=== PATIENT | male | born 1965 | race Caucasian/White ===

== ENCOUNTER 2020-03-09 00:40 | Outpatient (CLI) | payer BC, SELFPAY ==
[2020-03-09 18:53] LABS: SARS-CoV-2 RNA PCR Negative
== END 2020-03-09 00:41 | disposition home or self-care (01) ==
LOC: ANHCOVIDDT 00:40
PROVIDERS: PCP Internal Medicine; Visit Provider Specialist
DX: Z01.812 Encounter for preprocedural laboratory examination (principal); Z11.59 Encounter for screening for other viral diseases
CPT/HCPCS: 87635; C9803; U0003

== ENCOUNTER 2020-03-11 05:21 | Day surgery (SDC) | payer BC, OTHER, SELFPAY ==
[2020-03-10 10:33] VITALS: BMI 33.5
[2020-03-11] VITALS (24 sets, daily range): BP systolic 85–121; BP diastolic 53–84; PULSE 56–70; RESP 10–18; TEMP 36.1–36.9; O2SAT 94–98
[2020-03-11 08:55] LABS: Basophils Percent Auto 0.7 % (0.2-1.2); Eosinophils Absolute Auto 0.3 K/mm3 (0-0.3); Eosinophils Percent Auto 5.1 % (0-4.4); Hematocrit 47.4 % (42.0-52.0); Immature Granulocyte Absolute 0.02 K/mm3 (0.00-0.031); Immature Granulocyte Percent A 0.4 % (0-0.5); Lymphocytes Absolute Auto 1.71 K/mm3 (0.9-3.2); Lymphocytes Percent Auto 31.4 % (18.3-44.2); Mean Corpuscular HGB Conc 33.8 g/dl (32-36); Mean Corpuscular Hemoglobin 30.8 pg (26-34); Mean Corpuscular Volume 91.3 fl (80-100); Mean Platelet Volume 9.8 fl (7.4-10.4); Monocytes Absolute Auto 0.4 K/mm3 (0.1-0.6); Monocytes Percent Auto 7.7 % (2.6-8.5); Neutrophils Percent Auto 54.7 % (45.5-73.1); Platelet Count Result 222 k/mm3 (150-375); Red Blood Count 5.19 M/mm3 (4.6-6.20); Red Cell Distribution Width 12.8 % (11.5-14.5); White Blood Count 5.5 K/mm3 (4.5-10.0)
[2020-03-11 09:04] LABS: Prothrombin Time 12.6 Seconds (11.1-14.7)
[2020-03-11 09:09] LABS: Anion Gap 12.6 mmol/L (7-16); Blood Urea Nitrogen 22 mg/dL (9-20); Calcium 8.8 mg/dL (8.4-10.2); Carbon Dioxide 24 mmol/L (22-30); Chloride 108 mmol/L (98-107); Estimated CRCL calculation 103 ml/min; Estimated Glomerular Filt Rate > 60; Glucose 103 mg/dL (75-110); Potassium 4.6 mmol/L (3.4-5.0); Sodium 140 mmol/L (137-145)
--- NOTE | 2020-03-11 10:12 | WPDMODSED ---
Moderate Sedation Note-Pt Data Patient Data Diagnosis: Coronary artery disease, small-vessel disease identified in 2018 being treated medically. Patient has increase in symptoms with exertion and mildly abnormal nuclear stress test Present Complaint: exertional chest pain Procedure to be performed/Plan: left heart catheterization Allergies Allergy/AdvReac Type Severity Reaction Status Date / Time No Known Allergies Allergy Unverified 10/03/18 03:46 Home Medications Medication Instructions Recorded Confirmed Type alirocumab 75 mg/mL subcutaneous 75 mg SUB-Q DAILY 07/07/19 03/10/20 History pen injector atorvastatin 40 mg tablet 40 mg PO DAILY 07/07/19 03/10/20 History nitroglycerin 0.4 mg sublingual 0.4 mg SUBLINGUAL Q5M PRN 07/07/19 03/10/20 History tablet ranolazine 500 mg tablet,extended 1,000 mg PO Q12H 07/07/19 03/10/20 History release,12 hr losartan 25 mg tablet 25 mg PO DAILY 07/08/19 03/10/20 History omeprazole 40 mg capsule,delayed 40 mg PO DAILY #90 cap 07/08/19 03/10/20 Rx release valacyclovir 500 mg tablet 500 mg PO DAILY #90 tablet 07/08/19 03/10/20 Rx zolpidem 10 mg tablet 10 mg PO ONCE #90 tablet 01/06/20 03/11/20 Rx metoprolol succinate 50 mg PO DAILY 03/10/20 03/10/20 History Current Medications: Active Medications Sodium Chloride (Normal Saline Iv) 500 mls @ 100 mls/hr IV CONT .Q5H SARAH Sedation/Anesthesia: No previous sedation/anesthesia problems (including family history). [facility] Social History Social History Smoking status: Former smoker Tobacco type: cigarettes Second hand tobacco smoke exposure: Yes Smoking end date: 08/05/13 Alcohol intake: current Substance use: never Substance use type: does not use Living arrangements: with family Gender identity (if verbalized by the patient): Male Mod Sed Physical Exam Physical Exam Pre Procedural Exam: Normal: Neck, Throat, Airway, Lungs, Heart Size, Heart Rate, Heart Rhythm, Neuro Exam and Extremities and Variation: Appearance ( overweight white male no apparent distress) Hours since solid foods: 12 Hours since liquid intake: 12 Internal Medicine - PN: Obj Da Vital Signs Vital Signs: Vital Signs - 24 hr 03/11/20 08:45 Temperature 36.9 C Pulse Rate 68 Respiratory Rate 18 Blood Pressure 121/77 Pulse Oximetry 96 Meds/Results Medications: Active Medications Generic Name Dose Route Start Last Admin Trade Name Barry PRN Reason Stop Dose Admin Sodium Chloride 500 mls @ 100 mls/hr 03/11/20 06:10 Normal Saline Iv IV CONT .Q5H SARAH Labs CBC & Chem 7: 03/11/20 08:48 03/11/20 08:48 Labs: Laboratory Results - last 24 hr 03/11/20 03/11/20 03/11/20 08:48 08:48 08:48 WBC 5.5 RBC 5.19 Hgb 16.0 Hct 47.4 MCV 91.3 MCH 30.8 MCHC 33.8 RDW 12.8 Plt Count 222 MPV 9.8 Immature Gran % (Auto) 0.4 Neut % (Auto) 54.7 Lymph % (Auto) 31.4 Will % (Auto) 7.7 Eos % (Auto) 5.1 H Baso % (Auto) 0.7 Lymph # (Auto) 1.71 Will # (Auto) 0.4 Eos # (Auto) 0.3 Baso # (Auto) 0.0 Abs Immat Gran (auto) 0.02 Absolute Neuts (auto) 3.0 Absolute Nucleated RBC 0.0 Nucleated RBC % 0.0 PT 12.6 INR 1.0 Sodium 140 Potassium 4.6 Chloride 108 H Carbon Dioxide 24 Anion Gap 12.6 BUN 22 H Creatinine 0.80 Estim Creat Clear Calc 103 Estimated GFR > 60 Glucose 103 Calcium 8.8 ASA Classification/Sedation ASA Classification/Sedation ASA Class: II Emergent: No Risks: Risks, benefits and alternatives explained and patient/family accepted plan for sedation. Patient re-evaluated immediately prior to sedation.
--- NOTE | 2020-03-11 11:08 | ECG_ITS ---
Measurements Intervals [place] Rate: 58 P: 0 VA: 147 QRS: -9 QRSD: 97 T: -5 QT: 445 QTc: 439 Interpretive Statements SINUS BRADYCARDIA INCOMPLETE RIGHT BUNDLE BRANCH BLOCK BORDERLINE ST-T WAVE ABNORMALITY- ANT/INF LEADS BORDERLINE ECG Electronically Signed On 03-11-2020 15:49:57 CDT by Umang Reno D.O.
--- NOTE | 2020-03-11 11:12 | WPDCARDPROC ---
Cardiac Cath Procedure Note Date of procedure:: 03/11/20 Performing physician:: Jayesh Heart MD Indication:: coronary artery disease with angina despite medical treatment Brief clinical history:: this is a 54-year-old man with coronary artery disease felt to have small vessel disease following angiography in 2018 for which medical treatment has been recommended. Despite medical treatment he is a experiencing worsening exertional angina and follow-up angiography has been recommended Procedure Procedure performed:: left heart catheterization with left ventriculography and coronary angiography percutaneous balloon angioplasty of left PDA Sedation/Medication given:: fentanyl 50 mg Versed 6 mg case start time 1022 a.m. case end time 11:06 a.m. sedation provided by Pricilla Garcia RN, trained observer Access site:: right femoral artery Estimated blood loss:: 15-20 cc Procedure note:: patient was brought to the cardiac catheterization lab in the postabsorptive state the rest where the right femoral triangle was prepared and draped in the usual sterile fashion. . Anesthesia was provided with 1% lidocaine infiltrated locally. Using the modified Seldinger technique the femoral artery was punctured and a 5 Gambian vascular sheath was placed. Following this left heart catheterization was carried out. I utilized a 5 Gambian angled pigtail catheter to perform a left ventriculogram and examined left-sided hemodynamics. Following this the right coronary was engaged and injected using a 5 Gambian JR4 catheter. After this the left coronary was not engaged and injected sing a Five Gambian FL4 catheter. The cine angiograms were then reviewed and PCI of the left PDA was recommended and carried out as detailed below. Prior to PCI the 5 Gambian sheath was changed over guidewire for a 6 Gambian sheath. He was then anticoagulated with bolus and infusion of Angiomax and received Brilinta 180 mg orally well as full-dose aspirin. Following this PCI of the left PDA was performed as detailed below. Following this the case was terminated. The sheath was sutured into position he was taken to the holding area in stable condition you tolerated procedure well and there were no apparent procedural complications. Patient had no sign of a groin hematoma upon leaving the cytology laboratory manager. Findings:: Hemodynamics: Central aorta 100/56 left ventricle 98 over 5 end-diastolic 8. No gradient was seen across the aortic valve upon pullback. Left ventricle: LV g in the RONQUILLO projection shows the LV to be normal in size all segments contract well global ejection fraction is visually estimated to be 60-65%. Left main coronary artery is widely patent has a somewhat superior takeoff. The LAD is a moderate caliber artery extending down to around the apex. The LAD has modest proximal atherosclerosis with some luminal plaquing no more than about 20% stenosis is identified angiographically the vessel is unchanged in comparison to the angiogram from 2018 the circumflex is dominant to the posterior circulation with a large caliber vessel. The proximal trunk of the circumflex in the proximal marginal branches are free of significant disease. The left PDA however is severely diseased with 95% stenosis in its 1st half. There is also a 80-90% ostial lesion of this vessel. this vessel angiographically has progressed from 80-90% stenosis in 2018. The distal posterolateral circumflex vessel prior to this is angiographically non disease. The right coronary artery is very small in caliber non dominant has a 99% ostial stenosis and a 99% stenosis just distal to this. There are 2 small RV branch is following this. Angiographically this is unchanged compared to 2018 It was determined angiographically that the severe disease in the left PDA was responsible for the patient's symptoms and PCI of this was recommended. This is a fairly small distal vessel and is a poor candidate vessel fo
[2020-03-11] MEDS: ISOSORBIDE MONONITRATE 30 MG TAB.ER.24H PO (11:55)
--- NOTE | 2020-03-11 17:59 | ADMGEN ---
This patient, Avel Christie, was admitted to IMU Room 200-01. Patient/family oriented to hospital policies and general routines including ID bracelet, bed and alarms, visiting hours, pain management, procedures, bathroom and other care routines, personal items, smoking policy, room service/diet, and visiting hours. Valuables list has been completed. Information on how to activate the Rapid Response Team has been discussed. Patient/Family are encouraged to report perceived risks to care and to ask questions if they do not understand what they are told or what they should do.
[2020-03-11] MEDS: SODIUM CHLORIDE 0.9% IV 1,000 ML 125 ML IV CONT (18:26)
[2020-03-11] MEDS: ACETAMINOPHEN 325 MG TABLET 650 MG PO (20:14)
[2020-03-11] MEDS: RANOLAZINE 500 MG TAB.ER.12H 1000 MG PO (20:15)
[2020-03-11] MEDS: ZOLPIDEM TARTRATE 5 MG TABLET 10 MG PO (22:23)
[2020-03-12] VITALS (8 sets, daily range): BP systolic 114–137; BP diastolic 73–88; PULSE 54–71; RESP 12–18; TEMP 36.4–36.8; O2SAT 95–97
[2020-03-12] MEDS: ACETAMINOPHEN 325 MG TABLET 650 MG PO ×2 (00:02→09:01)
--- NOTE | 2020-03-12 05:11 | ECG_ITS ---
Measurements Intervals [place] Rate: 71 P: 16 NM: 152 QRS: -18 QRSD: 106 T: -19 QT: 396 QTc: 431 Interpretive Statements SINUS RHYTHM ST-T WAVE ABNORMALITY IN ANTERIOR LEADS- CONSIDER ISCHEMIA ABNORMAL ECG Electronically Signed On 03-12-2020 8:11:25 CDT by Umang Reno D.O.
[2020-03-12] MEDS: ATORVASTATIN 40 MG TABLET PO (09:01)
[2020-03-12] MEDS: ASPIRIN 81 MG CHEWABLE TABLET PO (09:01)
[2020-03-12] MEDS: RANOLAZINE 500 MG TAB.ER.12H 1000 MG PO (09:02)
[2020-03-12] MEDS: LOSARTAN POTASSIUM 25 MG TABLET PO (09:02)
[2020-03-12] MEDS: valACYclovir HCL 500 MG TABLET PO (09:02)
[2020-03-12] MEDS: CLOPIDOGREL BISULFATE 75 MG TABLET PO (09:02)
[2020-03-12] MEDS: METOPROLOL SUCCINATE EXT REL 50 MG TABCR PO (09:02)
[2020-03-12] MEDS: PANTOPRAZOLE 40 MG TABLET PO (09:02)
--- NOTE | 2020-03-12 09:39 | PM.DS ---
DS: Admitting Diagnosis Admitting Diagnosis Admitting Diagnosis: Progressive angina CAD DS: Discharge Diagnosis Discharge Diagnosis (1) CAD (coronary artery disease): Code(s): I25.10 - Atherosclerotic heart disease of [place] coronary artery without angina pectoris Status: Acute (2) Coronary angioplasty status: Code(s): Z98.61 - Coronary angioplasty status Status: Acute DS: Summary Hospital Course Reason for hospitalization: Progressive angina Hospital Course: Patient who is followed by Dr. Noriega with angina secondary to small-vessel disease by catheterization in 2018 has had progressive angina and repeat cardiac catheterization recommended. The patient underwent cardiac catheterization by Dr. Heart yesterday. This showed mild disease of the Left anterior descending. The left PDA was severely diseased with 95% stenosis of the 1st half and 80-90% ostial stenosis, which had progressed some since 2018. There is a 99% ostial RCA stenosis which was a very small vessel. He had normal LV function with EF of 60-65%. He underwent plain old balloon angioplasty of the left PDA. The vessel is too small to support as stent. He had some chest discomfort yesterday evening and was given isosorbide which he does not like to take because it causes severe headaches. The chest discomfort resolved and he feels great this morning, up and about in his room. He requests that we do not send him home with the isosorbide as previously planned as he has not been able tolerated in the past. Status at Discharge Cognitive/behavioral status at discharge: Competent. Functional status at discharge: independent ambulation Overall status at discharge: patient is back to baseline Time Spent with Patient Time attestation: Total time spent providing and/or coordinating discharge services: Time spent: Less than 30 minutes Exam Const: General: comfortable and no acute distress HENMT: Mouth: Yes moist mucous membranes Eyes: EOM: EOMs intact bilaterally Neck: Neck: supple Resp: Effort & Inspection: normal respiratory effort Auscultation: clear to auscultation bilaterally Cardio: Rate: regular rate Rhythm: regular rhythm Heart sounds: no murmurs Other: cath site right femoral area shows no hematoma or bleeding. Intact pedal pulses bilaterally. GI: Inspection: non-distended GI Palp: Yes Soft to palpation and No Tenderness to palpation present (GI) Skin: General skin exam: normal color Neuro: Motor exam (neuro): 5/5 motor strength present throughout and Normal motor muscle tone present throughout Extrem: General: no pedal edema Psych: Mental Status: mental status grossly normal Discharge Plan Discharge Patient Disposition: Home, Self-Care Discharge Instructions: ACTIVITY:No driving until Friday, March 13, 2020. No lifting, pushing or pulling more than 10 pounds for 1 week. No strenuous exercise or activity until you are released to do so. May shower but no tub baths or swimming pool for 1 week. Avoid commercial hot tubs. They are too hot DO NOT STOP YOUR MEDICATIONS! ONLY YOUR WIND TURBINE TECHNICIAN CAN STOP THE FOLLOWING MEDICATIONS: Aspirin Clopidogrel Atorvastatin Losartan Metoprolol succinate PLEASE CALL THE OFFICE IF THESE MEDICATIONS NEED TO BE STOPPED Read food labels for high levels of sodium, no added salt, avoid fried foods, eat more fruits and vegetables. Stay hydrated. If you have chest pain unrelieved by nitroglycerin call 911 immediately FOLLOW-UP: Follow up with [facility] [place] ([facility]) office at [facility] [address] Vance on March 30, 2020 at 10:00 a.m. Please arrive by 9:45 a.m. for your appointment. Bring photo ID, insurance card(s) and current medication list. WOUND CARE: May remove Band aid tomorrow and leave site open to air. Observe for redness, swelling, drainage o
== END 2020-03-12 10:29 | disposition home or self-care (01) ==
LOC: ANHCATHLAB 16:35 → ANHCPC 16:40 → ANHIMU 05-09 07:57
PROVIDERS: PCP Internal Medicine; Visit Provider Specialist
PROC: 4A023N7 Measurement of Cardiac Sampling and Pressure, Left Heart, Percutaneous Approach (ICD-10-PCS; CPT 93452; principal; 2020-03-11 10:00)
PROC: 02703ZZ Dilation of Coronary Artery, One Artery, Percutaneous Approach (ICD-10-PCS; CPT 92920; 2020-03-11 10:00)
DX: I25.119 Atherosclerotic heart disease of native coronary artery with unspecified angina pectoris (principal); R94.39 Abnormal result of other cardiovascular function study; Z87.891 Personal history of nicotine dependence
CPT/HCPCS: 36415; 80048; 85025; 85610; 92920; 93005; 93458; A9270; C1725; C1769; C1887; C1894; J0583; J1644; J2250; J3010; J7030; J7040

== ENCOUNTER 2021-10-26 00:56 | Day surgery (SDC) | payer OTHER, SELFPAY ==
[2021-10-25 11:32] VITALS: BMI 34.2
--- NOTE | 2021-10-25 11:51 | PC.NURSE ---
Report to the Outpatient Waiting Room, entrance under the green pavilion located off [facility], at time 0915 on date 10/26/21. OR Time: 1115. - You and your visitor will be asked a series of questions to screen for COVID 19 for your protection. - A mask is required within the hospital. One visitor will be allowed to accompany the patient into the hospital. Patients visitor will be instructed to remain with patient at all times or leave the building. We will allow the visitor to come back to the postoperative area when patient is ready. Preoperative COVID Testing Requirements: No COVID Test needed if: (proof is required; if not received patient will have Rapid Test prior to entry) - Patient has received COVID Vaccine at least 14 days prior to procedure date or - Patient has positive COVID test result within last 90 days of surgery date. COVID Test needed if above criteria is not met Patients may have clear liquids (water, carbonated beverages, clear teas, apple juice) until 3 hours prior to surgery with a maximum of 20 ounces. - No food from midnight until time of surgery Take the following medications with a SIP of water the morning of surgery: PAIN PILL (IF NEEDED), METOPROLOL, VALACYCLOVIR Medications to discontinue per physician: ASPIRIN Date to take last dose: PER DR. GARCIA Please no make-up, nail chilean, hairspray, perfume, deodorant, or body powder the day of surgery. No jewelry (including any body piercings) or valuables the day of surgery, leave them at home. Please take a shower or bath the night before, or the morning of, surgery with an antibacterial soap. Wear comfortable, loose fitting clothing. - Jewelry must be removed prior to entering the operating room. Rings and piercings that are not removed may be cut off. - The hospital will not accept responsibility for valuables. - Please leave all valuables, including medications, at home the day of surgery. If you are going home after surgery, a licensed clamp truck driver must drive you home. - NO public transportation without another adult. - We recommend that an adult stay with you for 24 hours following discharge. - We also recommend that you do not drive, make important decision, drink alcoholic beverages, or take any drugs that were not prescribed by your health care provider for at least 24 hours after your discharge time. Follow any additional instructions given to you from your surgeon. Telephone instructions given to ADRIANA CRAWFORD and asked if any additional questions and then verbalized understanding. Patient advised to call surgeon office or pre surgery nurse liaison [phone] if any additional questions.
[2021-10-26] VITALS (9 sets, daily range): BP systolic 108–153; BP diastolic 70–95; PULSE 47–57; RESP 10–20; TEMP 36.3–36.6; O2SAT 94–97
--- NOTE | ~2021-10-26 | XR_ITS ---
EXAMINATION: XR retrograde pyelogram LT DATE: 10/26/2021 11:32 CDT INDICATION: Evaluate left ureter TECHNIQUE: 22 fluoroscopic images from a left retrograde pyelogram are submitted for review. 20 secon ds of fluoroscopy. FINDINGS: The mid and distal left ureter demonstrate normal course and caliber without filling defect or stricture. No hydronephrosis. Left renal pelvis not visualized. IMPRESSION: 1. Unremarkable left retrograde pyelogram.. Correlate with real time procedural findings for details . Reviewed, dictated and finalized at location A. IMPRESSION: 1. Unremarkable left retrograde pyelogram.. Correlate with real time procedura l findings for details.
--- NOTE | 2021-10-26 06:25 | WPDANESEPPF ---
Anes - Initial Pre Proc Eval Procedure: Operation Date: 10/26/21 11:15 Proposed Procedures p Cystoscopy, Left Ureteroscopy, Left Stone Extraction, Possible Left Retrograde Pyelogram, Possible Left Stent Placement - Escobar Martinez MD s Possible Left Laser Lithotripsy - Escobar Martinez MD Date/Time: 10/26/21 06:25 Surgeon: Escobar Martinez MD Pre Op Diagnosis: Lt Ureteral Stone Patient Data Age: 56 Gender: M Height: 1.73 m Weight: 102.06 kg Allergies Allergy/AdvReac Type Severity Reaction Status Date / Time No Known Allergies Allergy Verified 10/26/21 10:06 Home Medications Medication Instructions Recorded Confirmed Type losartan 25 mg tablet 25 mg PO DAILY 07/08/19 10/25/21 History metoprolol succinate 50 mg PO DAILY 03/10/20 10/25/21 History aspirin 81 mg chewable tablet 81 mg PO HS 07/04/20 10/25/21 History nitroglycerin 0.4 mg sublingual 0.4 mg SUBLINGUAL Q5M PRN #30 07/10/21 10/25/21 Rx tablet tablet omeprazole 40 mg capsule,delayed 40 mg PO DAILY #90 cap 07/24/21 10/25/21 Rx release valacyclovir 500 mg tablet 500 mg PO DAILY #90 tablet 07/24/21 10/25/21 Rx zolpidem 10 mg tablet 10 mg PO .QHS #90 tablet 09/18/21 10/25/21 Rx hydrocodone-acetaminophen 1 tablet PO Q6H PRN 10/25/21 10/25/21 History ketorolac 10 mg PO Q6H PRN 10/25/21 10/25/21 History rosuvastatin 40 mg PO DAILY 10/25/21 10/25/21 History Patient hx anesthesia problems: none Family hx anesthesia problems: none Results Review: All pre-operative results and documents have been reviewed as part of the pre-operative evaluation. [facility] Past Medical History Medical History (Updated 10/26/21 @ 06:25 by Adrian Hodgson DO) CAD (coronary artery disease) GERD (gastroesophageal reflux disease) Hyperlipidemia Hypertension LAURA (obstructive sleep apnea) bipap Surgical History Surgical History (Updated 10/26/21 @ 10:08 by Adrian Hodgson DO) Coronary angioplasty status balloon angioplasty x4, (2018,19,20,21) Family History Family History Father Family history of congenital heart disease Family history of cardiovascular disease Family history of chronic obstructive pulmonary disease Mother Family history of congenital heart disease Family history of osteoporosis Family history of chronic obstructive pulmonary disease Family history of cardiovascular disease Sibling Patient's sister is in good health Patient's brother is in good health Social History Social History Smoking packs per day: 1 Smoking cigarettes per day: 20.0 Years smoked: 35 Smoking pack-years: 35.00 Smoking status: Former smoker Tobacco type: cigarettes Second hand tobacco smoke exposure: Yes Smoking end date: 08/05/13 Alcohol intake: former Substance use: never Substance use type: does not use Living arrangements: with family Gender identity (if verbalized by the patient): Male Sexual Orientation (if Verbalized by the Patient): Straight or Heterosexual Spiritual care concerns: No Anes - Eval Final PreProcedure Day of Procedure 10/26/21 06:25 Patient weight: obese Heart: regular rate and rhythm Lungs: clear to auscultation and normal air movement Airway: Mallampati scale class II Neurological: alert and oriented Last oral intake: >/= 8 hours ASA classification: III Emergent: no Anesthetic plan: proceed Anesthesia type and monitoring: general LMA and standard monitoring Results Review: All pre-operative results and documents have been reviewed as part of the pre-operative evaluation. Informed Consent: The patient's anesthetic plan and its attendant risks and benefits were discussed with the patient/family/POA. Questions were solicited and answers provided to the satisfaction of the patient/family/POA.
--- NOTE | 2021-10-26 06:53 | WPDHPUPDATE1 ---
History and Physical Update Update Date/Time: 10/26/21 06:53 History and Physical has been reviewed, including an updated exam of the patient. There are NO changes in the patient's condition. Risks, benefits, and alternatives have been discussed and questions answered. Patient agrees to proceed with procedure.
[2021-10-26] MEDS: LACTATED RINGERS 1,000 ML 30 ML IV CONT (10:25)
[2021-10-26] MEDS: ceFAZolin 2 GM/D5W 50 ML 2 GM/50 ML BAG IVPB (11:00)
--- NOTE | 2021-10-26 11:14 | SUR.OPER ---
Pt consented for left sided procedure, marked pt's left side and procedure scheduled as left sided. Upon examining pt, immediately before procedure start, realized pt's stone was on the right side. OR team notified and procedure performed on right side.
--- NOTE | 2021-10-26 11:28 | W.PM.PROC2 ---
Procedure Note - Detailed Date of Procedure 10/26/21 Pre-op Diagnosis Right Ureteral Stone Post-op Diagnosis Same Procedure Performed Cystoscopy, right ureteroscopy with stone extraction, left retrograde pyelography Surgeon Escobar Martinez MD Anesthesia General Description of Procedure Prior to initiation of a surgical time-out identified that the procedure was scheduled for left ureteroscopy when indeed my notes and review of his recent CT scan showed a 5 mm right distal ureteral calculus. He was brought to the operative suite where he is prepped and draped in a routine sterile fashion while in the dorsal lithotomy position after the uneventful induction of a general LMA anesthetic. A 19F rigid cystoscope was placed in the bladder. There are no urethral strictures. His prostatic urethra measures, approximately, 2.0cm with small median lobe enlargement. The bladder mucosa was endoscopically normal without hyperemia or neoplasm. There was a single, orthotopic ureteral orifice bilaterally. I could see a stone in the intramural portion of his right distal ureter and there was a small blood clot at the ureteral orifice. A 0.035 glidewire was advanced into the right renal pelvis under fluoroscopy. The distal ureter was dilated with an 8F/10F ureteral dilator. Ureteroscopy was undertaken with a short, tapered, semi-rigid ureteroscope and two stones ( a 5 mm and a 2 mm ) stone was extracted with ease using a 1.9F Escape disposable stone basket. Due to the ease of this manipulation I opted not to place a ureteral stent. a right retrograde pyelogram obtained through the tip of the semi-rigid ureteral scope showed no stones, filling defects or points of obstruction in the right ureter or collecting system. Scopes and wires removed. The patient's bladder was emptied and was taken to the recovery room having tolerated this procedure well. Estimated Blood Loss 0 Drains No Packing No Pathology Yes Complications No immediate complications Condition Stable Disposition PACU
[2021-10-26] MEDS: oxyCODONE HCL (*CRX) 5 MG TAB IR PO (12:26)
== END 2021-10-26 13:00 | disposition home or self-care (01) ==
PROVIDERS: PCP Internal Medicine; Visit Provider Urology
PROC: (CPT 52352; principal; 2021-10-26 11:15)
DX: N20.1 Calculus of ureter (principal); I25.10 Atherosclerotic heart disease of native coronary artery without angina pectoris; I10 Essential (primary) hypertension; E78.5 Hyperlipidemia, unspecified; K21.9 Gastro-esophageal reflux disease without esophagitis; G47.33 Obstructive sleep apnea (adult) (pediatric); Z87.891 Personal history of nicotine dependence; E66.9 Obesity, unspecified; Z68.35 Body mass index [BMI] 35.0-35.9, adult; Z79.82 Long term (current) use of aspirin
CPT/HCPCS: 52352; 74420; 82365; 88300; A9270; C1758; C1769; J0690; J1885; J2250; J2405; J2704; J3010; J7120; Q9966

== ENCOUNTER 2022-08-31 03:43 | Day surgery (SDC) | payer OTHER, SELFPAY ==
[2022-08-24 12:50] VITALS: BMI 36.5
--- NOTE | 2022-08-24 12:58 | PC.NURSE ---
Report to the Outpatient Waiting Room, entrance under the green pavilion located off [facility], at time 0930 on date 08/31/22. Planned Procedure Time: 1130. Time changes happen often and if your time is changed the preop area will call you the afternoon before. - You and your visitor will be asked to self-screen and do not enter if you have any COVID symptoms. - Only one visitor is requested with a max of two and NO children visitors are allowed at this time. - The patient visitor may be requested to leave or wait in car when not with patient due to distancing restrictions. - A mask is optional within the hospital. Patients may have clear liquids (water, carbonated beverages, clear teas, apple juice) until 3 hours prior to surgery with a maximum of 20 ounces. - No food from midnight until time of surgery Take the following medications with a SIP of water the morning of surgery: METOPROLOL, VALACYCLOVIR Medications to discontinue per physician: ASPIRIN Date to take last dose: PER DR. GARCIA Please no make-up, nail mongolian, hairspray, perfume, deodorant, or body powder the day of surgery. No jewelry (including any body piercings) or valuables the day of surgery, leave them at home. Please take a shower or bath the night before, or the morning of, surgery with an antibacterial soap. Wear comfortable, loose fitting clothing. - Jewelry must be removed prior to entering the operating room. Rings and piercings that are not removed may be cut off. - The hospital will not accept responsibility for valuables. - Please leave all valuables, including medications, at home the day of surgery. If you are going home after surgery, a licensed local intermodal truck driver must drive you home. - NO public transportation without another adult if you receive anesthesia. - We recommend that an adult stay with you for 24 hours following discharge. - We also recommend that you do not drive, make important decision, drink alcoholic beverages, or take any drugs that were not prescribed by your health care provider for at least 24 hours after your discharge time. Follow any additional instructions given to you from your surgeon. If you or anyone in your household have experienced Covid symptoms in the past week, please notify your surgeon or the nurse liaison at the phone number below for possible testing. Telephone instructions given to PT - SLIME CRAWFORD and asked if any additional questions and then verbalized understanding. Patient advised to call surgeon office or pre surgery nurse liaison [phone] if any additional questions.
--- NOTE | 2022-08-28 07:57 | PM.HPGS ---
History of Present Illness History of Present Illness Consent: Risks, benefits, and alternatives have been discussed and questions answered. Patient agrees to proceed with procedure. Chief complaint: right ureteral kidney stones Narrative: Avel Christie is a 57 year old male With a long history of recurrent urolithiasis. He recently presented to [facility] with a painful obstructing 6 mm right ureteral stone and bilateral renal calculi up to 10 mm. He underwent endoscopic extraction of the ureteral stone with stent placement. He now presents for right ESWL. He is aware of the risk of this including, but not limited to, adverse cardiopulmonary events, persistent stone fragments that may require additional procedures, hematuria and perinephric hematoma. Review of Systems Cardiovascular: Cardiovascular: Denies chest pain, Denies lightheadedness, Denies palpitations and Denies dyspnea Respiratory: Respiratory: Denies dyspnea Gastrointestinal: Gastrointestinal: Denies diarrhea, Denies nausea and Denies vomiting Genitourinary: Genitourinary: Denies hematuria and Denies dysuria Endocrine: Endocrine: Denies palpitations [facility] Past Medical History Medical History CAD (coronary artery disease) GERD (gastroesophageal reflux disease) Hyperlipidemia Hypertension LAURA (obstructive sleep apnea) bipap Surgical History Surgical History Coronary angioplasty status balloon angioplasty x4, (2018,19,20,21) Family History Family History Father Family history of congenital heart disease Family history of cardiovascular disease Family history of chronic obstructive pulmonary disease Mother Family history of congenital heart disease Family history of osteoporosis Family history of chronic obstructive pulmonary disease Family history of cardiovascular disease Sibling Patient's sister is in good health Patient's brother is in good health Social History Social History Smoking packs per day: 1 Smoking cigarettes per day: 20.0 Years smoked: 32 Smoking pack-years: 32.00 Smoking status: Former smoker Tobacco type: cigarettes Second hand tobacco smoke exposure: Yes Smoking end date: 08/05/13 Alcohol intake: former Substance use: never Substance use type: does not use Current Housing: Decline to Answer Concerned About Future Housing: Decline to Answer Difficulty Paying Gas/Electric Bills: Decline to Answer Difficulty Paying for Meds: Decline to Answer Currently Unemployed: Decline to Answer Education: Decline to Answer Difficulty w/ Childcare or Family Care: Decline to Answer Living arrangements: with family Gender identity (if verbalized by the patient): Male Sexual Orientation (if Verbalized by the Patient): Straight or Heterosexual Spiritual care concerns: No Meds Home Medications and Allergies Home Medications Medication Instructions Recorded Confirmed Type metoprolol succinate 25 mg 50 mg PO DAILY 03/10/20 08/24/22 History tablet,extended release 24 hr aspirin 81 mg chewable tablet 81 mg PO HS 07/04/20 08/24/22 History (Aspirin Childrens) nitroglycerin 0.4 mg sublingual 0.4 mg sublingual Q5M PRN Chest 07/10/21 08/24/22 Rx tablet Pain #30 tabs rosuvastatin 40 mg tablet 40 mg PO DAILY 10/25/21 08/24/22 History zolpidem 10 mg tablet 10 mg PO QHS PRN insomnia #90 tabs 07/11/22 08/24/22 Rx omeprazole 40 mg capsule,delayed 40 mg PO DAILY #90 caps 07/24/22 08/24/22 Rx release valacyclovir 500 mg tablet 500 mg PO DAILY #90 tabs 07/31/22 08/24/22 Rx (Valtrex) tamsulosin 0.4 mg capsule 0.4 mg PO HS 08/24/22 08/24/22 History Allergies Allergy/AdvReac Type Severity Reaction Status Date / Time No Known Allergies Allergy V
[2022-08-31] VITALS (9 sets, daily range): BP systolic 103–126; BP diastolic 54–71; PULSE 64–80; RESP 12–18; TEMP 36.1–36.4; O2SAT 92–98
--- NOTE | ~2022-08-31 | XR_ITS ---
EXAMINATION: XR abdomen/kub 1V DATE: 08/31/2022 08:57 INDICATION: Nephrolithiasis for planned right-sided extracorporeal shockwave lithotripsy. TECHNIQUE: A supine view of the abdomen on 2 radiographs was obtained. COMPARISON: 10/26/2021 FINDINGS: Cluster of stones at the lower pole of the left kidney the largest measuring 8 mm with a few <[address] ones. Additional tiny calcifications right and small linear fashion at the bilateral renal brown and f avor which appear to correspond renal arterial atherosclerotic calcification is seen on CT dated 2018. A few additional linear atherosclerotic calcification in the pelvis. No stones seen along the c ourse of the ureters. No dilated bowel to suggest obstruction. Lung bases are clear. Heart size is no rmal. Sclerotic bone island at the left innominate bone. IMPRESSION: 1. Cluster of stones, the largest measuring 8 mm at a lower pole calyx of the left kidney. Reviewed, dictated and finalized at location B. STRESS ENGINEER IMPRESSION: 1. Cluster of stones, the largest measuring 8 mm at a lower pole calyx of the l eft kidney.
--- NOTE | 2022-08-31 06:50 | WPDHPUPDATE1 ---
History and Physical Update Update Date/Time: 08/31/22 06:50 History and Physical has been reviewed, including an updated exam of the patient. There are NO changes in the patient's condition. Risks, benefits, and alternatives have been discussed and questions answered. Patient agrees to proceed with procedure.
--- NOTE | 2022-08-31 09:18 | WPDANESEPPF ---
Anes - Initial Pre Proc Eval Procedure: Operation Date: 08/31/22 11:30 Proposed Procedures p Right Extracorporeal Shock Wave Lithotripsy - Escobar Martinez MD Date/Time: 08/31/22 09:18 Surgeon: Escobar Martinez MD Pre Op Diagnosis: right ureteral kidney stones Patient Data Age: 57 Gender: M Height: 1.73 m Weight: 108.9 kg Allergies Allergy/AdvReac Type Severity Reaction Status Date / Time No Known Allergies Allergy Verified 08/31/22 08:58 Home Medications Medication Instructions Recorded Confirmed Type metoprolol succinate 25 mg 50 mg PO DAILY 03/10/20 08/24/22 History tablet,extended release 24 hr aspirin 81 mg chewable tablet 81 mg PO HS 07/04/20 08/24/22 History (Aspirin Childrens) nitroglycerin 0.4 mg sublingual 0.4 mg sublingual Q5M PRN Chest 07/10/21 08/24/22 Rx tablet Pain #30 tabs rosuvastatin 40 mg tablet 40 mg PO DAILY 10/25/21 08/24/22 History zolpidem 10 mg tablet 10 mg PO QHS PRN insomnia #90 tabs 07/11/22 08/24/22 Rx omeprazole 40 mg capsule,delayed 40 mg PO DAILY #90 caps 07/24/22 08/24/22 Rx release valacyclovir 500 mg tablet 500 mg PO DAILY #90 tabs 07/31/22 08/24/22 Rx (Valtrex) tamsulosin 0.4 mg capsule 0.4 mg PO HS 08/24/22 08/24/22 History Patient hx anesthesia problems: none Family hx anesthesia problems: none Results Review: All pre-operative results and documents have been reviewed as part of the pre-operative evaluation. [facility] Past Medical History Medical History CAD (coronary artery disease) GERD (gastroesophageal reflux disease) Hyperlipidemia Hypertension LAURA (obstructive sleep apnea) bipap Surgical History Surgical History Coronary angioplasty status balloon angioplasty x4, (2018,19,20,21) Family History Family History Father Family history of congenital heart disease Family history of cardiovascular disease Family history of chronic obstructive pulmonary disease Mother Family history of congenital heart disease Family history of osteoporosis Family history of chronic obstructive pulmonary disease Family history of cardiovascular disease Sibling Patient's sister is in good health Patient's brother is in good health Social History Social History Smoking packs per day: 1 Smoking cigarettes per day: 20.0 Years smoked: 32 Smoking pack-years: 32.00 Smoking status: Former smoker Tobacco type: cigarettes Second hand tobacco smoke exposure: Yes Smoking end date: 08/05/13 Alcohol intake: former Substance use: never Substance use type: does not use Current Housing: Decline to Answer Concerned About Future Housing: Decline to Answer Difficulty Paying Gas/Electric Bills: Decline to Answer Difficulty Paying for Meds: Decline to Answer Currently Unemployed: Decline to Answer Education: Decline to Answer Difficulty w/ Childcare or Family Care: Decline to Answer Living arrangements: with family Gender identity (if verbalized by the patient): Male Sexual Orientation (if Verbalized by the Patient): Straight or Heterosexual Spiritual care concerns: No Anes - Eval Final PreProcedure Day of Procedure 08/31/22 09:18 Patient weight: obese Heart: regular rate and rhythm Lungs: clear to auscultation Airway: Mallampati scale class II Neurological: alert and oriented Last oral intake: >/= 8 hours ASA classification: III Emergent: no Anesthetic plan: proceed Anesthesia type and monitoring: general LMA and standard monitoring Results Review: All pre-operative results and documents have been reviewed as part of the pre-operative evaluation. Informed Consent: The patient's anesthetic plan and its attendant risks and benefits were discussed with the patient/family/
[2022-08-31] MEDS: LACTATED RINGERS 1,000 ML 30 ML IV CONT (09:28)
[2022-08-31 09:42] LABS: INR 1.1; Prothrombin Time 13.8 Seconds (11.1-14.7)
[2022-08-31] MEDS: ceFAZolin 2 GM/D5W 50 ML 2 GM/50 ML BAG IVPB (10:02)
--- NOTE | 2022-08-31 10:39 | W.PM.PROC2 ---
Procedure Note - Detailed Date of Procedure 08/31/22 Pre-op Diagnosis Bilateral renal stones Post-op Diagnosis Same Procedure Performed Left ESWL Surgeon Escobar Martinez MD Anesthesia General Description of Procedure After carefully reviewed patient's outside imaging and today's KUB it is apparent that his only significant stone burden is a 9 mm left lower calyceal stone. After discussion we decided to proceed with ESWL to that stone. He was brought to the operative suite where he was placed in the supine position on the Dornier lithotripsy table. The focal point of the lithotripter was placed at a 9mm left lower calyceal calculus. A total of 2500 shocks were delivered at a power setting of 4. There appeared to be good fragmentation of the stone. The patient tolerated the procedure well and was taken to the recovery room in good condition. Drains No Pathology None sent Complications No immediate complications Condition Stable
[2022-08-31] MEDS: fentaNYL CITRATE INJ (*CRX) 100 MCG/2 ML VIAL 25 MCG IV PUSH ×3 (11:07→11:16)
== END 2022-08-31 12:53 | disposition home or self-care (01) ==
PROVIDERS: PCP Physician Assistant; Visit Provider Urology
PROC: (CPT 50590; principal; 2022-08-31 11:30)
DX: N20.2 Calculus of kidney with calculus of ureter (principal); I25.10 Atherosclerotic heart disease of native coronary artery without angina pectoris; K21.9 Gastro-esophageal reflux disease without esophagitis; E78.5 Hyperlipidemia, unspecified; I10 Essential (primary) hypertension; G47.33 Obstructive sleep apnea (adult) (pediatric); Z87.891 Personal history of nicotine dependence; Z79.82 Long term (current) use of aspirin
CPT/HCPCS: 50590; 36415; 74018; 85610; 85730; J0690; J1100; J2250; J2370; J2405; J2704; J3010; J7120

== ENCOUNTER 2024-01-06 10:41 | Outpatient (CLI) | payer OTHER, SELFPAY ==
--- NOTE | 2024-01-06 10:57 | ECG_ITS ---
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 Measurements Intervals [place] Rate: 88 P: 3 SC: 157 QRS: -12 QRSD: 92 T: -13 QT: 341 QTc: 414 Interpretive Statements SINUS RHYTHM NONSPECIFIC ST AND T-WAVE ABNORMALITY ABNORMAL ECG No previous ECG available for comparison Electronically Signed On 01-06-2024 14:53:37 CDT by Jayesh Heart M.D.
[2024-01-06 11:31] LABS: Partial Thromboplastin Time 28.2 Seconds (22.3-36.8)
== END 2024-01-06 10:42 | disposition home or self-care (01) ==
LOC: ANHSURGERY 10:51
PROVIDERS: PCP Family Medicine; Visit Provider Urology
DX: Z01.818 Encounter for other preprocedural examination (principal); N20.0 Calculus of kidney; I25.10 Atherosclerotic heart disease of native coronary artery without angina pectoris
CPT/HCPCS: 36415; 85610; 85730; 87086; 87181; 93005

== ENCOUNTER 2024-01-21 10:09 | Outpatient (CLI) | payer OTHER, SELFPAY ==
[2024-01-21 10:44] LABS: Partial Thromboplastin Time 35.1 Seconds (22.3-36.8)
== END 2024-01-21 10:10 | disposition home or self-care (01) ==
LOC: ANHSURGERY 10:16
PROVIDERS: PCP Family Medicine; Visit Provider Urology
DX: Z01.818 Encounter for other preprocedural examination (principal); N20.1 Calculus of ureter
CPT/HCPCS: 36415; 85610; 85730; 87086

== ENCOUNTER 2024-01-24 00:22 | Day surgery (SDC) | payer OTHER, SELFPAY ==
[2024-01-01 11:06] VITALS: BMI 36.8
--- NOTE | 2024-01-01 11:07 | PC.NURSE ---
Report to the Outpatient Waiting Room, entrance under the green pavilion located off [facility], at time _1100_ on date _[id number]_. Planned Procedure Time: _1pm_. Time changes happen often and if your time is changed the preop area will call you the afternoon before. - You and your visitor will be asked to self-screen and do not enter if you have any COVID symptoms. - A mask is optional within the hospital at this time. Patients may have clear liquids (water, carbonated beverages, clear teas, apple juice) until 3 hours prior to surgery with a maximum of 20 ounces. - No food from midnight until time of surgery Take the following medications with a SIP of water the morning of surgery: ___Metoprolol DO NOT STOP ANY OF YOUR OTHER PRESCRIPTION MEDICATIONS PRIOR TO SURGERY ?EXCEPT THE FOLLOWING Medications to discontinue per physician ____Please ask Dr Martinez's office if Aspirin needs to be stopped.____ Date to take last dose Please no make-up, nail georgian, hairspray, perfume, deodorant, or body powder the day of surgery. No jewelry (including any body piercings) or valuables the day of surgery, leave them at home. Please take a shower or bath the night before, or the morning of, surgery with an antibacterial soap. Wear comfortable, loose fitting clothing. - Jewelry must be removed prior to entering the operating room. Rings and piercings that are not removed may be cut off. - The hospital will not accept responsibility for valuables. - Please leave all valuables, including medications, at home the day of surgery. If you are going home after surgery, a licensed winch driver must drive you home. - NO public transportation without another adult if you receive anesthesia. - We recommend that an adult stay with you for 24 hours following discharge. - We also recommend that you do not drive, make important decision, drink alcoholic beverages, or take any drugs that were not prescribed by your health care provider for at least 24 hours after your discharge time. Follow any additional instructions given to you from your surgeon. If you or anyone in your household have experienced Covid symptoms in the past week, please notify your surgeon or the nurse liaison at the phone number below for possible testing. Telephone instructions given to _Ron__and asked if any additional questions and then verbalized understanding. Patient advised to call surgeon office or pre surgery nurse liaison [phone] if any additional questions.
--- NOTE | 2024-01-08 06:55 | PM.HPGS ---
History of Present Illness History of Present Illness Consent: Risks, benefits, and alternatives have been discussed and questions answered. Patient agrees to proceed with procedure. Chief complaint: right ureteral stone Narrative: Avel Christie is a 58 year old male who is known to have renal and ureteral stones on several occasions in the past. In October he was admitted with an obstructing 5mm painful right proximal ureteral stone. My partner placed ureteral stent and he now presents for definitive right ESWL. He is aware the risk including, but not limited to, adverse cardiopulmonary events, need for additional procedures, hematuria and perinephric hematoma. Review of Systems Review of Systems: All systems reviewed & are unremarkable except as noted in HPI and below PMFSH Past Medical History Medical History (Updated 03/05/23 @ 11:49 by Harpreet Piña PA-C) Arthritis of right knee CAD (coronary artery disease) GERD (gastroesophageal reflux disease) History of postoperative nausea and vomiting History of stress test Hyperlipidemia Hypertension Nephrolithiasis LAURA (obstructive sleep apnea) bipap Sensitivity to medication narcotics cause itching Sleep apnea Surgical History Surgical History Coronary angioplasty status balloon angioplasty x4, (2018,19,20,21) History of appendectomy History of elbow surgery History of hand surgery History of left knee replacement History of left knee surgery Revision by Dr. Abad History of shoulder surgery Bilateral Family History Family History Father Family history of congenital heart disease Family history of cardiovascular disease Family history of chronic obstructive pulmonary disease Mother Family history of congenital heart disease Family history of osteoporosis Family history of chronic obstructive pulmonary disease Family history of cardiovascular disease Sibling Patient's sister is in good health Patient's brother is in good health Social History Social History Smoking packs per day: 1 Smoking cigarettes per day: 20.0 Years smoked: 38 Smoking pack-years: 38.00 Smoking status: Former smoker Tobacco type: cigarettes Second hand tobacco smoke exposure: Yes Smoking end date: 12/31/12 Alcohol intake: former Substance use: never Substance use type: does not use Current Housing: Decline to Answer Concerned About Future Housing: Decline to Answer Difficulty Paying Gas/Electric Bills: Decline to Answer Difficulty Paying for Meds: Decline to Answer Currently Unemployed: Decline to Answer Education: Decline to Answer Difficulty w/ Childcare or Family Care: Decline to Answer Living arrangements: with family Gender identity (if verbalized by the patient): Male Sexual Orientation (if Verbalized by the Patient): Straight or Heterosexual Spiritual care concerns: No Meds Home Medications and Allergies Home Medications Medication Instructions Recorded Confirmed Type metoprolol succinate 25 mg 25 mg PO DAILY 03/10/20 01/01/24 History tablet,extended release 24 hr aspirin 81 mg chewable tablet 81 mg PO HS 07/04/20 01/01/24 History (Aspirin Childrens) nitroglycerin 0.4 mg sublingual 0.4 mg sublingual Q5M PRN Chest 07/10/21 01/01/24 Rx tablet Pain #30 tabs rosuvastatin 40 mg tablet 40 mg PO DAILY 10/25/21 01/01/24 History tamsulosin 0.4 mg capsule 0.4 mg PO HS 08/24/22 01/01/24 History valacyclovir 500 mg tablet 500 mg PO DAILY #90 tabs 04/18/23 01/01/24 Rx (Valtrex) zolpidem 10 mg tablet 10 mg PO QHS PRN insomnia #90 tabs 10/17/23 01/01/24 Rx omeprazole 40 mg capsule,delayed 40 mg PO DAILY #90 caps 10/24/23 01/01/24 Rx release Allergies Allergy/AdvReac Type Severity Reaction Status Date / Time No Known Allergies Allergy
--- NOTE | 2024-01-10 14:24 | PC.NURSE ---
Patient says he started on antibiotics yesterday for UTI. Says is doing terrible with fevers reaching 103, Chills and sweats. Says he has a daughter who is a nurse practitioner who is worried about sepsis. Encouraged patient to go to ER if this doesn't improve or gets worse. I also called Dr Martinez office and asked them to be sure Dr Martinez was aware of how sick this patient was.
--- NOTE | 2024-01-10 14:26 | PC.NURSE ---
Report to the Outpatient Waiting Room, entrance under the green pavilion located off [facility], at time _0830_ on date _[id number]_. Planned Procedure Time: _1030_. Time changes happen often and if your time is changed the preop area will call you the afternoon before. - You and your visitor will be asked to self-screen and do not enter if you have any COVID symptoms. - A mask is optional within the hospital at this time. Patients may have clear liquids (water, carbonated beverages, clear teas, apple juice) until 3 hours prior to surgery with a maximum of 20 ounces. - No food from midnight until time of surgery Take the following medications with a SIP of water the morning of surgery: ____Metoprolol DO NOT STOP ANY OF YOUR OTHER PRESCRIPTION MEDICATIONS PRIOR TO SURGERY ?EXCEPT THE FOLLOWING Medications to discontinue per physician says instructions from office told him to hold Aspirin. Patient currently taking Ibuprofen for fever, encouraged him to switch to tylenol. Please no make-up, nail greenlandic, hairspray, perfume, deodorant, or body powder the day of surgery. No jewelry (including any body piercings) or valuables the day of surgery, leave them at home. Please take a shower or bath the night before, or the morning of, surgery with an antibacterial soap. Wear comfortable, loose fitting clothing. - Jewelry must be removed prior to entering the operating room. Rings and piercings that are not removed may be cut off. - The hospital will not accept responsibility for valuables. - Please leave all valuables, including medications, at home the day of surgery. If you are going home after surgery, a licensed concrete mixing truck driver must drive you home. - NO public transportation without another adult if you receive anesthesia. - We recommend that an adult stay with you for 24 hours following discharge. - We also recommend that you do not drive, make important decision, drink alcoholic beverages, or take any drugs that were not prescribed by your health care provider for at least 24 hours after your discharge time. Follow any additional instructions given to you from your surgeon. If you or anyone in your household have experienced Covid symptoms in the past week, please notify your surgeon or the nurse liaison at the phone number below for possible testing. Telephone instructions given to __Avel___and asked if any additional questions and then verbalized understanding. Patient advised to call surgeon office or pre surgery nurse liaison [phone] if any additional questions.
--- NOTE | 2024-01-20 11:24 | PC.NURSE ---
Report to the Outpatient Waiting Room, entrance under the green pavilion located off [facility], at time _0730_ on date _[id number]_. Planned Procedure Time: _0930_. Time changes happen often and if your time is changed the preop area will call you the afternoon before. - You and your visitor will be asked to self-screen and do not enter if you have any COVID symptoms. - A mask is optional within the hospital at this time. Patients may have clear liquids (water, carbonated beverages, clear teas, apple juice) until 3 hours prior to surgery with a maximum of 20 ounces. - No food from midnight until time of surgery Take the following medications with a SIP of water the morning of surgery: __Metoprolol DO NOT STOP ANY OF YOUR OTHER PRESCRIPTION MEDICATIONS PRIOR TO SURGERY ?EXCEPT THE FOLLOWING Medications to discontinue per physician ____Aspirin per Dr Orosco. Date to take last dose Please no make-up, nail croatian, hairspray, perfume, deodorant, or body powder the day of surgery. No jewelry (including any body piercings) or valuables the day of surgery, leave them at home. Please take a shower or bath the night before, or the morning of, surgery with an antibacterial soap. Wear comfortable, loose fitting clothing. - Jewelry must be removed prior to entering the operating room. Rings and piercings that are not removed may be cut off. - The hospital will not accept responsibility for valuables. - Please leave all valuables, including medications, at home the day of surgery. If you are going home after surgery, a licensed lokie driver must drive you home. - NO public transportation without another adult if you receive anesthesia. - We recommend that an adult stay with you for 24 hours following discharge. - We also recommend that you do not drive, make important decision, drink alcoholic beverages, or take any drugs that were not prescribed by your health care provider for at least 24 hours after your discharge time. Follow any additional instructions given to you from your surgeon. If you or anyone in your household have experienced Covid symptoms in the past week, please notify your surgeon or the nurse liaison at the phone number below for possible testing. Telephone instructions given to __Barringtoneric___and asked if any additional questions and then verbalized understanding. Patient advised to call surgeon office or pre surgery nurse liaison [phone] if any additional questions.
--- NOTE | 2024-01-23 14:15 | WPDANESEPPF ---
Anes - Initial Pre Proc Eval Procedure: Operation Date: 01/24/24 09:30 Proposed Procedures p Right Extracorporeal Shock Wave Lithotripsy - Manish Orosco MD Date/Time: 01/23/24 14:15 Surgeon: Manish Orosco MD Pre Op Diagnosis: right ureteral stone Patient Data Age: 58 Gender: M Height: 1.73 m Weight: 110 kg Allergies Allergy/AdvReac Type Severity Reaction Status Date / Time No Known Allergies Allergy Verified 01/24/24 08:11 Home Medications Medication Instructions Recorded Confirmed Type metoprolol succinate 25 mg 25 mg PO DAILY 03/10/20 01/24/24 History tablet,extended release 24 hr aspirin 81 mg chewable tablet 81 mg PO HS 07/04/20 01/20/24 History (Aspirin Childrens) nitroglycerin 0.4 mg sublingual 0.4 mg sublingual Q5M PRN Chest 07/10/21 01/20/24 Rx tablet Pain #30 tabs rosuvastatin 40 mg tablet 40 mg PO DAILY 10/25/21 01/20/24 History tamsulosin 0.4 mg capsule 0.4 mg PO HS 08/24/22 01/20/24 History valacyclovir 500 mg tablet 500 mg PO DAILY #90 tabs 04/18/23 01/20/24 Rx (Valtrex) zolpidem 10 mg tablet 10 mg PO QHS PRN insomnia #90 tabs 10/17/23 01/20/24 Rx omeprazole 40 mg capsule,delayed 40 mg PO DAILY #90 caps 10/24/23 01/20/24 Rx release Patient hx anesthesia problems: none Family hx anesthesia problems: none Results Review: All pre-operative results and documents have been reviewed as part of the pre-operative evaluation. [facility] Past Medical History Medical History (Updated 03/05/23 @ 11:49 by Harpreet Piña, PA-C) Arthritis of right knee CAD (coronary artery disease) GERD (gastroesophageal reflux disease) History of postoperative nausea and vomiting History of stress test Hyperlipidemia Hypertension Nephrolithiasis LAURA (obstructive sleep apnea) bipap Sensitivity to medication narcotics cause itching Sleep apnea Surgical History Surgical History Coronary angioplasty status balloon angioplasty x4, (2018,19,20,21) History of appendectomy History of elbow surgery History of hand surgery History of left knee replacement History of left knee surgery Revision by Dr. Abad History of shoulder surgery Bilateral Family History Family History Father Family history of congenital heart disease Family history of cardiovascular disease Family history of chronic obstructive pulmonary disease Mother Family history of congenital heart disease Family history of osteoporosis Family history of chronic obstructive pulmonary disease Family history of cardiovascular disease Sibling Patient's sister is in good health Patient's brother is in good health Social History Social History Smoking packs per day: 1 Smoking cigarettes per day: 20.0 Years smoked: 38 Smoking pack-years: 38.00 Smoking status: Former smoker Tobacco type: cigarettes Second hand tobacco smoke exposure: Yes Smoking end date: 12/31/12 Alcohol intake: former Substance use: never Substance use type: does not use Current Housing: Decline to Answer Concerned About Future Housing: Decline to Answer Difficulty Paying Gas/Electric Bills: Decline to Answer Difficulty Paying for Meds: Decline to Answer Currently Unemployed: Decline to Answer Education: Decline to Answer Difficulty w/ Childcare or Family Care: Decline to Answer Living arrangements: with family Gender identity (if verbalized by the patient): Male Sexual Orientation (if Verbalized by the Patient): Straight or Heterosexual Spiritual care concerns: No Anes - Eval Final PreProcedure Day of Procedure 01/23/24 14:15 Patient weight: obese Heart: regular rate and rhythm Lungs: clear to auscultation Airway: Mallampati scale class II Neurological: alert and oriented Last oral intake: >/= 8 h
[2024-01-24] VITALS (7 sets, daily range): BP systolic 101–141; BP diastolic 64–87; PULSE 55–85; RESP 12–18; TEMP 36.2–36.5; O2SAT 97; BMI 34.8
--- NOTE | ~2024-01-24 | XR_ITS ---
EXAMINATION: XR abdomen/kub 1V DATE: 01/24/2024 07:42 INDICATION: Right kidney stone. TECHNIQUE: A supine view of the abdomen on 2 radiographs was obtained. COMPARISON: Abdomen radiographs 08/31/2022, CT abdomen and pelvis 10/03/2018 FINDINGS: There are no dilated loops of bowel. There is a right internal ureteral stent in expected p osition. There are vascular calcifications at the brown of the kidneys. There are two 3 mm densities o verlying right kidney. There is a 4 mm stone at right ureteropelvic junction. IMPRESSION: 1. 4 mm stone at right ureteropelvic junction. Right internal ureteral stent in expected position. 2. Two 3 mm densities overlying right kidney that may be stones. Reviewed, dictated and finalized at location A.
--- NOTE | 2024-01-24 07:25 | WPDHPUPDATE1 ---
History and Physical Update Update Date/Time: 01/24/24 07:25 History and Physical has been reviewed, including an updated exam of the patient. There are NO changes in the patient's condition. Risks, benefits, and alternatives have been discussed and questions answered. Patient agrees to proceed with procedure. Proceed with right renal eswl
[2024-01-24] MEDS: LACTATED RINGERS 1,000 ML 30 ML IV CONT ×2 (08:34→10:31)
[2024-01-24] MEDS: ceFAZolin 2 GM/D5W 50 ML 2 GM/50 ML BAG IVPB (09:22)
--- NOTE | 2024-01-24 10:11 | W.PM.PROC2 ---
Procedure Note - Detailed Date of Procedure 01/24/24 Pre-op Diagnosis right ureteral stone Post-op Diagnosis Same Procedure Performed Lithotripsy of right ureteral calculus Surgeon Manish Orosco MD Anesthesia General Description of Procedure Patient was taken to the operative suite correctly identified. Once anesthesia was attained the stone was localized both planes. Three thousand shocks were given the stone. There appeared to be good fragmentation. Patient was taken recovery stable condition. A follow-up 7-10 days with KUB. This completes dictation on this patient. Please send a copy of op note to my office Estimated Blood Loss 0 Drains Yes Packing No Pathology None sent Complications No immediate complications Condition Stable Disposition PACU
== END 2024-01-24 11:20 | disposition home or self-care (01) ==
PROVIDERS: PCP Family Medicine; Visit Provider Urology
PROC: (CPT 50590; principal; 2024-01-24 09:30)
DX: N20.1 Calculus of ureter (principal); I10 Essential (primary) hypertension; E78.5 Hyperlipidemia, unspecified; I25.10 Atherosclerotic heart disease of native coronary artery without angina pectoris; K21.9 Gastro-esophageal reflux disease without esophagitis; G47.33 Obstructive sleep apnea (adult) (pediatric); E66.9 Obesity, unspecified; Z68.34 Body mass index [BMI] 34.0-34.9, adult; Z79.82 Long term (current) use of aspirin; Z99.89 Dependence on other enabling machines and devices; Z98.890 Other specified postprocedural states; Z95.5 Presence of coronary angioplasty implant and graft; Z87.891 Personal history of nicotine dependence; Z80.49 Family history of malignant neoplasm of other genital organs
CPT/HCPCS: 50590; 36415; 74018; 85610; 85730; 87077; 87086; 87088; 87181; 93005; J0690; J1100; J2405; J2704; J7120

== ENCOUNTER 2024-01-28 08:58 | Outpatient (CLI) | payer OTHER, SELFPAY ==
--- NOTE | ~2024-01-28 | XR_ITS ---
EXAMINATION: XR abdomen/kub 1V DATE: 01/28/2024 09:17 INDICATION: Right ureteral stone. TECHNIQUE: A supine view of the abdomen on 2 radiographs was obtained. COMPARISON: Abdomen radiograph 01/24/2024, CT abdomen and pelvis 10/03/2018 FINDINGS: There are no dilated loops of bowel. There is a right internal ureteral stent in expected p osition. There are vascular calcifications at the brown of the kidneys. There are 3 mm and 4 mm densit ies overlying right kidney and are likely stones. IMPRESSION: 1. Right internal ureteral stent in expected position. 2. Right kidney stones. Reviewed, dictated and finalized at location A.
== END 2024-01-28 08:59 | disposition home or self-care (01) ==
PROVIDERS: PCP Family Medicine; Visit Provider Urology
DX: N20.1 Calculus of ureter (principal); N20.0 Calculus of kidney
CPT/HCPCS: 74018

== ENCOUNTER 2024-06-03 13:56 | Outpatient (CLI) | payer OTHER, SELFPAY ==
--- NOTE | ~2024-06-03 | XR_ITS ---
EXAM: XR abdomen/kub 1V DATE: 06/03/2024 14:10 HISTORY: Right ureteral stone . COMPARISON: 01/28/2024. FINDINGS: Clear lung bases. Normal bowel gas pattern. No organomegaly. Irregular calcifications proj ecting over the bilateral renal brown, previously described as vascular in nature. Regional bones and soft tissues normal for age. IMPRESSION: Previously described right renal stones are not confidently visualized, may be secondary to interval passage/removal or obscuration. CT of the abdomen and pelvis with helpful for further vicenta racterization. Reviewed, dictated and finalized at location K. IMPRESSION: Previously described right renal stones are not confidently visuali zed, may be secondary to interval passage/removal or obscuration. CT of the abd omen and pelvis with helpful for further characterization.
== END 2024-06-03 13:57 | disposition home or self-care (01) ==
PROVIDERS: PCP Urology; Visit Provider Urology
DX: N20.1 Calculus of ureter (principal)
CPT/HCPCS: 74018